=== PATIENT | female | born 1995 | race Caucasian/White ===

== ENCOUNTER 2018-11-23 13:22 | Inpatient (IN) | payer BC ==
[~2018-11-23] VITALS: Ht 170.2 cm; Wt 101.8 kg
[~2018-11-23 13:22] MED LIST: OXYTOCIN 10 UNIT INJ ONE
[2018-11-23 14:11] VITALS: Ht 170.2 cm; Wt 101.8 kg
[2018-11-23] MEDS ORDERED: AZITHROMYCIN 500MG/NS (PMX) 250 ML IV SCH (14:30)
[2018-11-23] MEDS ORDERED: METHYLERGONOVINE 0.2 MG INJ IM PRN ×2 (14:30→23:00)
[2018-11-23] MEDS ORDERED: MISOPROSTOL 200 MCG TAB PR PRN ×2 (14:30→23:00)
[2018-11-23] MEDS ORDERED: CARBOPROST 250 MCG INJ IM PRN ×2 (14:30→23:00)
[2018-11-23] MEDS ORDERED: OXYTOCIN 30 UNITS/LR 500 ML IV PRN ×2 (14:30→23:00)
[2018-11-23] MEDS ORDERED: CEFAZOLIN 2 GM/50 ML (PMX) 50 ML IVPB SCH (14:30)
[2018-11-23 15:34] VITALS: BP 104/64; PULSE 90; RESP 20
[2018-11-23] MEDS: LACTATED RINGER'S 1,000 ML IV SCH ×2 (16:08→16:52)
--- NOTE | 2018-11-23 17:14 | PREAC ---
Date/Time of Note Date/Time of Note DATE: 11/23/18 TIME: 17:12 Anesthesia Eval and Record Evaluation Time Pre-Procedure Interview DATE: 11/23/18 TIME: 17:12 Age 22 Sex female NPO: 8 hrs Preoperative diagnosis IUP, Breech Planned procedure C/section Past Medical History Past Medical History: Includes Surgery & Anesthesia Issues No known issue Meds Anticoagulation: No Beta Shamir within 24 hr: No Reason Beta Shamir not given: Pt. not on B-Shamir Current Medications Lactated Ringer's 1,000 ml @ 125 mls/hr Q8H IV Last administered on 11/23/18at 16:52; Admin Dose 125 MLS/HR; Start 11/23/18 at 14:06 Cefazolin Sodium/ Dextrose 50 ml @ 100 mls/hr ONCE IVPB ; Start 11/23/18 at 14:30 Azithromycin 250 ml @ 250 mls/hr ONCE IV ; Start 11/23/18 at 14:30 Oxytocin/Lactated Ringer's 500 ml @ 0 mls/hr ONCE PRN IV .VAGINAL BLEEDING; Start 11/23/18 at 14:30 Methylergonovine Maleate (Methergine) 0.2 mg ONCE PRN IM .VAGINAL BLEEDING; Start 11/23/18 at 14:30 Carboprost Tromethamine (Hemabate) 250 mcg ONCE PRN IM .VAGINAL BLEEDING; Start 11/23/18 at 14:30 Misoprostol (Cytotec) 1,000 mcg ONCE PRN SC .VAGINAL BLEEDING; Start 11/23/18 at 14:30 Meds reviewed: Yes Allergies Coded Allergies: No Known Drug Allergies (Verified Allergy, Unknown, 11/23/18) Allergies Reviewed: Yes Labs/Studies Labs Reviewed: Reviewed by anesthesiologist Result Diagram: 11/23/18 1530 Laboratory Tests 11/23/18 15:30 test: Positive Studies: ECG Pre-procedure Exam Last vitals Vital Signs Date Temp Pulse Resp B/P (MAP) Pulse Ox O2 O2 Flow FiO2 Time Delivery Rate 11/23/18 98.5 90 20 104/64 Room Air 15:34 (77) Airway: Adequate mouth opening, Adequate thyromental dist Mallampati: Mallampati II Teeth: Normal Lung: Normal Heart: Normal ASA Physical Status ASA physical status: 2 Emergency: None Planned Anesthetic Neuraxial: Spinal Planned Pain Management Sub-arachniod narcotics, Parenteral pain med Pre-operative Attestations Prior to commencing anesthesia and surgery, the patient was re-evaluated, there was verification of: *The patient's identity *The results of appropriate recent lab work and preoperative vital signs *The above evaluation not changing prior to induction *Anesthetic plan, risk benefits, alternative and complications discussed with patient/family; questions answered; patient/family understands, accepts and wishes to proceed. TERESA DIEHL MD November 23, 2018 17:14
[2018-11-23] MEDS ORDERED: OXYTOCIN 10 UNIT INJ ONE (18:18)
[2018-11-23] MEDS ORDERED: morphine SULFATE/PF (10 MG/10 ML) INJ ONE (18:18)
[2018-11-23] MEDS ORDERED: ONDANSETRON 4 MG INJ ONE (18:18)
[2018-11-23] MEDS ORDERED: PHENYLephrine 10 MG INJ ONE (18:46)
[2018-11-23] MEDS ORDERED: FENTAnyl 50 MCG/ML VIAL ONE (18:58)
--- NOTE | 2018-11-23 19:27 | HP ---
Date/Time of Note Date/Time of Note DATE: 11/23/18 TIME: 19:24 OB - History Hx of Present Free Text/Dictation 22-year-old female 1 para 0 at 39 weeks with breech presentation admitted for primary section Last Menstrual Period: Feb 23, 2018 Estimated Due Date: November 30, 2018 : 1 Para: 0 Care: Good Care Ultrasounds: Normal mid trimester US Obstetrical Complications: None, Other (Breech presentation) Medical Complications: None, Other (History of herpes genitalis) Past Family/Social History * Past Medical, Surgical, Family and Obstetric Histories reviewed from chart. Blood Type: O+ Rubella: immune RPR/VDRL: Negative GBS Status: Positive HBsAG: Negative OB Admission Exam Vital Signs Vital Signs Vital Signs Date Temp Pulse Resp B/P (MAP) Pulse Ox O2 O2 Flow FiO2 Time Delivery Rate 11/23/18 98.5 90 20 104/64 Room Air 15:34 (77) Physical Exam HEENT: WNL Heart: Rhythm Normal Lungs: Clear, Equal Abdomen: WNL Extremities: Normal Reflexes: Normal Cervical Dilatation: None Effacement: 25% Station: -3 Membranes: Intact Heart Rate: 140's Accelerations: Accelerations Present Decelerations: No Decelerations Varibility: Marked Contractions on Admission: None Last 72 hours Lab Results CBC & BMP 11/23/18 15:30 OB Assessment/Plan Reason for admission: section Other Assessment: Term gestation Breech presentation Other plan: Proceed with primary section DUSTIN CAVAZOS MD November 23, 2018 19:27
[2018-11-23] MEDS ORDERED: KETOROLAC 30 MG INJ IV STA (19:30)
[2018-11-23] MEDS ORDERED: ACETAMINOPHEN 500 MG TAB PO STA (19:30)
--- NOTE | 2018-11-23 19:30 | OPR ---
Operative Report Planned Procedure Procedure date November 23, 2018 Procedure(s) Primary delivery Performed by see signature line [employer] Sales Counter Manager: NANI AGUIAR MD Anesthesiologist: TERESA DIEHL MD Pre-procedure diagnosis Term gestation Breech presentation [id number] Anesthesia Type: Nuedj7x spinal Post-Procedure Post-procedure diagnosis Status post primary Findings Live Baby with double footling breech presentation Clear amniotic fluid Normal-appearing right and left fallopian tubes and ovaries Estimated Blood Loss: 500 - 600 mls Specimen(s) none Grafts/Implant(s) none Complication(s) none Pt Condition post procedure: stable Disposition: PACU Procedure Description Under satisfactory anaesthesia a Pfannenstiel incision was made two fingerbreadth above and parallel to the symphysis of pubis. Incision was extended laterally to the border of the Recti muscles on either sides. Incision was carried down with sharp and blunt dissection until fascia was reached. Anterior Recti muscle fascia was incised in mid portion and incision extended laterally to the border of skin incision. Fascia was mobilized from muscle superiorly and Recti muscles were from midline using sharp and blunt dissection. Peritoneum was visualized; Avoiding bowel and bladder it was incised . Incision was extended superiorly and inferiorly. Bladder blade was placed. Posterior peritoneum covering the lower segment of the uterus and lower segment of the uterus were incised. Incision was extended laterally to the border of Round Lig. on either sides and baby was delivered via total breech extraction without difficulty. Amniotic fluid appeared clear. Cord blood was obtained and cord had 3 vessels . Placenta was delivered spontaneously and appeared intact and complete. Intrauterine cavity was rubbed with a laparotomy sponge. Uterine incision was closed in 2 layers using running stitches of No1 Monocryl. Hemostasis appeared secure. Ovaries and Fallopian tubes were within normal limits. Announcing needle, lap sponge and instrument count to be correct abdomen was closed in layers as follows: Peritoneum and Recti muscles with running stitches of 2-0. Monocryl. Fascia with running stitch of No 1 PDS. Subcutaneous tissue with running stitches of 2-0 Vicryl and skin was closed using elham. Patient tolerated the procedure well and was transferred to [facility] in good condition. DUSTIN CAVAZOS MD November 23, 2018 19:30
--- NOTE | 2018-11-23 19:40 | PAC ---
Date/Time of Note Date/Time of Note DATE: 11/23/18 TIME: 19:39 Post-Anesthesia Notes Post-Anesthesia Note Last documented vital signs Vital Signs Date Temp Pulse Resp B/P (MAP) Pulse Ox O2 O2 Flow FiO2 Time Delivery Rate 11/23/18 98.5 90 20 104/64 Room Air 15:34 (77) Activity: WNL Respiratory function: WNL Cardiovascular function: WNL Mental status: Baseline Pain reasonably controlled: Yes Hydration appropriate: Yes Nausea/Vomiting absent: Yes Comments BP:112/67, P:88, Spo2:100%, T:98,8 TERESA DIEHL MD November 23, 2018 19:40
[2018-11-23] MEDS ORDERED: NALOXONE (0.4 MG/ML) INJ IV PRN ×2 (20:00→21:30)
[2018-11-23] MEDS ORDERED: ONDANSETRON 4 MG INJ IV PRN (20:00)
[2018-11-23] MEDS ORDERED: OXYTOCIN 30 UNITS/LR 500 ML IV SCH (21:30)
[2018-11-23] MEDS: morphine 2 MG INJ IV PRN ×2 (21:38→21:45)
[2018-11-23] MEDS ORDERED: LACTATED RINGER'S 1,000 ML IV SCH (22:48)
[2018-11-23 23:00] VITALS: BP 125/80; PULSE 91; RESP 18
[2018-11-23] MEDS ORDERED: LANOLIN HPA 1 PKT TOP PRN (23:00)
[2018-11-23] MEDS ORDERED: NA PHOSPHATE/BIPHOS 133 ML ENEMA PR PRN (23:00)
[2018-11-23] MEDS: CLINDAMYCIN 300 MG CAP PO SCH (23:57)
[2018-11-23] MEDS: CEFAZOLIN 2 GM/50 ML (PMX) 50 ML IVPB SCH (23:57)
[2018-11-24] MEDS: DIPHENHYDRAMINE 50 MG INJ IV PRN ×2 (00:37→08:31)
[2018-11-24] MEDS: morphine 2 MG INJ IV PRN (00:58)
[2018-11-24 04:00] VITALS: BP 100/64; PULSE 90; RESP 17
[2018-11-24] MEDS: LACTATED RINGER'S 1,000 ML IV SCH ×3 (05:49→22:06)
[2018-11-24] MEDS: CLINDAMYCIN 300 MG CAP PO SCH ×3 (05:49→17:35)
[2018-11-24] MEDS: CEFAZOLIN 2 GM/50 ML (PMX) 50 ML IVPB SCH ×2 (06:41→15:34)
[2018-11-24] MEDS: SENNA/DOCUSATE NA (8.6MG/50MG) TAB PO SCH ×2 (08:34→21:56)
[2018-11-24 08:45] VITALS: BP 97/54; PULSE 93; RESP 20
[2018-11-24] MEDS: KETOROLAC 30 MG INJ IV PRN ×2 (10:41→17:34)
[2018-11-24 13:28] VITALS: BP 92/57; PULSE 86; RESP 20
[2018-11-24] MEDS ORDERED: BISACODYL 10 MG SUPP PR ONE (15:00)
[2018-11-24 16:00] VITALS: BP 99/54; PULSE 82; RESP 18
[2018-11-24] MEDS ORDERED: HYDROCODONE/APAP (5/325) TAB PO PRN (18:16)
[2018-11-24 20:45] VITALS: BP 105/66; PULSE 82; RESP 18
--- NOTE | 2018-11-24 21:19 | PN ---
Date/Time of Note Date/Time of Note DATE: 11/24/18 TIME: 21:17 Assessment/Plan VTE Prophylaxis VTE Prophylaxis Intervention: ambulation Lines/Catheters IV Catheter Type (from Nrsg): Peripheral IV Assessment/Plan Assessment/Plan S/P C/S POD # 1 advance diet and ambulate continue to monitor vital signs Subjective 24 Hr Interval Summary No BM passing flatus Constitutional: no complaints, improved, ambulates, BM, flatus, urine output Pain Control: well controlled Exam/Review of Systems Vital Signs Vitals Vital Signs Date Temp Pulse Resp B/P (MAP) Pulse Ox O2 O2 Flow FiO2 Time Delivery Rate 11/24/18 98.3 82 18 99/54 (69) 16:00 11/24/18 96 13:28 11/24/18 Room Air 04:00 Intake and Output 11/23/18 11/23/18 11/24/18 1515:00 23:00 07:00 IntakeIntake Total 1000 ml 1725 ml OutputOutput Total 1095 ml 90 ml BalanceBalance -95 ml 1635 ml Exam Free Text/Dictation abdomen: soft BS + Incision : covered Constitutional: alert, oriented, well developed Psych: no complaints, nl mood/affect Head: normocephalic, atraumatic Eyes: nl conjunctiva, EOMI, nl lids, nl sclera ENMT: nl external ears & nose, nl lips & teeth, nl nasal mucosa & septum, mucosa pink and moist Neck: supple, non-tender Respiratory: clear to auscultation, normal air movement Cardiovascular: regular rate and rhythm, nl pulses Gastrointestinal: soft, nl liver, spleen, non-tender Musculoskeletal: nl extremities to inspection, nl gait and stance Extremities: normal pulses Neurological: QUALITY ASSURANCE NURSE II-XII intact, nl mental status, nl speech, nl strength Skin: nl turgor, rash or lesions Lymph: nl lymph nodes Results Result Diagram: 11/24/18 0539 DUSTIN CAVAZOS MD November 24, 2018 21:19
[2018-11-24] MEDS: IBUPROFEN 800 MG TAB PO SCH (21:56)
[2018-11-24] MEDS: OXYCODONE/ACETAMINOPHEN (5/325) TAB PO PRN (22:07)
[2018-11-24] MEDS ORDERED: HYDROmorphONE 0.5 MG/0.5 ML SYG IV ONE (22:56)
[2018-11-25] MEDS: CLINDAMYCIN 300 MG CAP PO SCH ×4 (00:25→18:39)
[2018-11-25 04:00] VITALS: BP 108/67; PULSE 82; RESP 18
[2018-11-25] MEDS: OXYCODONE/ACETAMINOPHEN (5/325) TAB PO PRN ×4 (05:23→21:51)
[2018-11-25] MEDS: IBUPROFEN 800 MG TAB PO SCH ×3 (05:33→21:50)
[2018-11-25] MEDS: LACTATED RINGER'S 1,000 ML IV SCH (06:06)
[2018-11-25 09:20] VITALS: BP 100/61; PULSE 80; RESP 18
[2018-11-25] MEDS: SENNA/DOCUSATE NA (8.6MG/50MG) TAB PO SCH ×2 (09:51→21:50)
[2018-11-25] MEDS ORDERED: ACETAMINOPHEN 325 MG TAB PO PRN (12:00)
--- NOTE | 2018-11-25 12:00 | DS ---
Date/Time of Note Date/Time of Note Home today or next DATE: 11/25/18 TIME: 11:59 Obstetrical Discharge Record Final Diagnosis Final Diagnosis: Term delivered Other Final Diagnosis 22-year-old female underwent primary section for breech presentation Section Section: Primary Primary Indication Breech presentation Condition on Discharge Physical Assessment Last Vitals: See nurse's notes Voiding: Yes Bowel Movement: Yes Breast: Soft, non-tender, Filling Fundus: Firm Abdomen and Incision: Abdomen is soft with present bowel sounds Incision is without induration and no erythema Calf Tenderness: No Patient Condition: Good DUSTIN CAVAZOS MD November 25, 2018 12:00
--- NOTE | 2018-11-25 12:01 | DS ---
Date/Time of Note Date/Time of Note DATE: 11/25/18 TIME: 12:00 Discharge Summary Admission/Discharge Info Admit Date/Time November 23, 2018 at 13:22 Discharge Date/Time November 25 08/29/2018 Discharge Diagnosis Status post section Patient Condition: Good Procedures Primary section Hx of Present Illness 22-year-old female underwent section for breech presentation Uncomplicated postop course Discharged home on third day or second day with good prognosis and condition Hospital Course Hospital course remained uncomplicated Follow-up Plan To 3 days in clinic for staple removal Primary Care Provider Not On Staff Doctor Time spent on discharge: > 30 minutes DUSTIN CAVAZOS MD November 25, 2018 12:01
[2018-11-25] MEDS ORDERED: ACET325T33 PO (12:02)
--- NOTE | 2018-11-25 12:02 | PD.PPDC ---
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 Provider Information Physician Information 22-year-old female underwent primary section for breech presentation Diagnosis [id number] Final Diagnosis: Asqxu7z Status post Condition [id number] Patient Condition: Uokpb2y Good Diet Mxzew2Tg Diet: Tfgqg8b Resume Regular Diet Activity/Restrictions Oebln1Or Activity: Gsvqi1b May Shower [id number] Restrictions: Gbnxi2v No Exercising No Lifting Nothing in the Vagina [id number] Return to Work or School: Apruk9r Jan 28, 2019 Wound/Drain Care Instructions [id number] Wound/Drain Care Instructions: Crhdz6r Keep clean and dry Follow-up Follow-up with Physician: 2, 3, Day/Days (In clinic for staple removal) Return to clinic for Bcujb5Au 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
[2018-11-25] MEDS ORDERED: IBUP800T48 PO (12:03)
[2018-11-25 15:56] VITALS: BP 112/72; PULSE 84; RESP 18
[2018-11-25 16:19] VITALS: RESP 18
[2018-11-25 21:15] VITALS: BP 119/73; PULSE 74; RESP 18
[2018-11-26] MEDS: CLINDAMYCIN 300 MG CAP PO SCH ×3 (00:19→12:56)
[2018-11-26 04:00] VITALS: BP 106/55; PULSE 77; RESP 17
[2018-11-26] MEDS: IBUPROFEN 800 MG TAB PO SCH ×2 (05:40→14:00)
[2018-11-26 08:00] VITALS: BP 116/64; PULSE 83; RESP 20
[2018-11-26] MEDS: SENNA/DOCUSATE NA (8.6MG/50MG) TAB PO SCH (08:43)
[2018-11-26] MEDS: OXYCODONE/ACETAMINOPHEN (5/325) TAB PO PRN ×2 (08:45→13:30)
[2018-11-26] MEDS ORDERED: DIPHTH/TET/ACEL PERTUSS (ADULT) 0.5 ML VIAL IM* ONE (09:00)
[2018-11-26] MEDS ORDERED: MEASLES,MUMPS,RUBELLA VACCINE INJ SC* ONE (09:00)
--- NOTE | 2018-11-27 15:02 | DELSUM ---
Delivery Summary A-C Datetime Report Generated by CPN: 11/27/2018 15:02 DELIVERY PERSONNEL [place] Operator: Lloyd, Corina MATERNAL INFORMATION Delivery Anesthesia: Spinal Medications in Delivery: see anthesiologist flowsheet Delivery QBL (ml): 650 Placenta Cultured: No Maternal Complications: None LABOR SUMMARY EDC: 12/04/2018 00:00 No. Babies in Womb: 1 Attempted: No Labor Anesthesia: None LABOR INFORMATION Reason for Induction: Not Applicable Oxytocin: N/A Group B Beta Strep: Negative Antibiotics # of Doses: 2 Antibiotics Time of Last Dose: 11/23/2018 18:20 Steroids Given: None Reason Steroids Not Administered: Not Applicable MEMBRANES Membranes Rupture Method: Artificial Rupture of Membranes: 11/23/2018 18:48 Length of Rupture (hr): 0.03 Amniotic Fluid Color: Clear Amniotic Fluid Amount: Moderate Amniotic Fluid Odor: None STAGES OF LABOR Stage 3 hr: 0 Stage 3 min: 0 CSECTION DELIVERY Primary Indication: Breech Presentation Secondary Indication: N/A CSection Urgency: Elective CSection Incidence: Primary Labor: No Labor Elective: Elective CSection Incision: Lower Uterine Transverse BABY A INFORMATION Delivery Date/Time: 11/23/2018 18:50 Method of Delivery: Born in Route : No : N/A Forceps: N/A Vacuum Extraction: N/A Shoulder Dystocia : N/A SHOULDER DYSTOCIA BABY A Infant Delivery Date/Time: 11/23/2018 18:50 PRESENTATION/POSITION BABY A Presentation: Breech Cephalic Presentation: N/A Breech Presentation: Single Footling PLACENTA INFORMATION BABY A Placenta Delivery Time : 11/23/2018 18:50 Placenta Method of Delivery: Manual Removal Placenta Status: Delivered SCORES BABY A Heart Rate 1 min: >100 bpm Resp Effort 1 min: Good Cry Reflex Irritability 1 min: Cough/Sneeze/Pulls Away Muscle Tone 1 min: Active Motion Color 1 min: Body [place], Extremit Blue Resuscitation Effort 1 min: Tactile Stimulation SCORE 1 MIN: 9 Heart Rate 5 min: >100 bpm Resp Effort 5 min: Good Cry Reflex Irritability 5 min: Cough/Sneeze/Pulls Away Muscle Tone 5 min: Active Motion Color 5 min: Body [place], Extremit Blue Resuscitation Effort 5 min: Tactile Stimulation SCORE 5 MIN: 9 INFORMATION BABY A Gestational Age at Delivery: 38.3 Gestational Status: Early Term- 37- 38.6 Weeks Outcome : Liveborn Condition : Stable Sex: Male IDENTIFICATION/MEDS BABY A ID Band Number: [id number] ID Band Location: Right Leg; Left Arm Sensor Applied: Yes Sensor Number: [id number] Sensor Location : Cord Clamp Vitamin K Given : Not Given Erythromycin Given: Not Given WEIGHT/LENGTH BABY A Infant Birthweight (gm): 3520 Infant Weight (lb): 7 Infant Weight (oz): 12 Length (in): 21.00 Length (cm): 53.34 CORD INFORMATION BABY A No. Cord Vessels: 3 Nuchal Cord : N/A Cord Blood Taken: Yes Infant Suction: Mouth; Nose ASSESSMENT BABY A Complications: None Physical Findings at Delivery: Within Normal Limits Respirations: Appears Normal Merchandise Appraiser/ALS Called : No Infant Care By: [place] Transferred To: Remains with Mother
== END 2018-11-26 15:02 | disposition home or self-care (01) | DRG 788 ==
LOC: L-D 13:22 → PP1 22:53
PROVIDERS: ADMIT Obstetrics & Gynecology; ATTEND Obstetrics & Gynecology
PROC: 10D00Z1 Extraction of Products of Conception, Low, Open Approach (ICD-10-PCS; principal; 2018-11-23)
DX: O32.1XX0 Maternal care for breech presentation, not applicable or unspecified (principal); Z3A.39 39 weeks gestation of pregnancy; Z37.0 Single live birth
CPT/HCPCS: 76815; 85025; 85610; 85730; 86592; 86850; 86900; 86901; 87340; 99464; J0456; J0690; J1170; J1200; J1885; J2270; J2274; J2370; J2405; J2590; J3010; J7120